=== PATIENT | female | born 1975 | race Caucasian/White ===

== ENCOUNTER 2017-11-13 20:39 | Emergency (ER) | payer MEDICAID, OTHER ==
[2017-11-13 20:58] VITALS: O2SAT 98
[2017-11-13] MEDS ORDERED: VALIUM 10 MG/2 ML SYRINGE IM ONE (21:07)
[2017-11-13] MEDS ORDERED: TORAdol 30 mg Injection IM ONE (21:07)
--- NOTE | 2017-11-13 21:12 | ERPHSYRPT ---
- History of Present Illness Time Seen by Provider: 11/13/17 21:00 Source: patient Exam Limitations: no limitations Patient Subjective Stated Complaint: pt states she fell on her lt hip approx 2 mos ago and then a few weeks later fell on her lt knee. states she has been having pain in her hip radiating down her lt leg. Triage Nursing Assessment: pt alert and oriented, answers questions approp. pt ambulatory with slightly limping gait ntoed. respirations nonlabored with lungs cta. pedal pulse, cap refill, sensation to lt leg wnl. Physician History: Pt is c/o low back pain, radiating to her left buttock and thigh for 2 months, since she fell. She denies fever, abdominal pain, vomiting, no loss of bladder or bowel control, or otehr complaints, she has been ambulating with some pain. Timing/Duration: other (2 months) Method of Injury: fall Quality: radiating, sharp Back Pain Location: lumbar spine Back Pain Radiation: buttocks, upper legs Severity of Pain-Max: severe Severity of Pain-Current: severe Modifying Factors: Improves With: immobilization, movement Associated Symptoms: denies symptoms Previous symptoms: no prior history Allergies/Adverse Reactions: Penicillins Allergy (Verified 11/13/17 21:09) Rash Hx Tetanus, Diphtheria Vaccination/Date Given: No Hx Influenza Vaccination/Date Given: No Hx Pneumococcal Vaccination/Date Given: No Immunizations Up to Date: No - Review of Systems Constitutional: No Symptoms Musculoskeletal: Back Pain All Other Systems: Reviewed and Negative - Past Medical History Pertinent Past Medical History: No - Past Surgical History Past Surgical History: Yes Other Surgical History: tubes in ears as a child - Social History Smoking Status: Current every day smoker How long have you smoked: 25 Exposure to second hand smoke: Yes Drug Use: none Patient Lives Alone: No - Female History Hx Last Menstrual Period: 2 weeks ago Hx Now: No - Nursing Vital Signs Nursing Vital Signs: Initial Vital Signs Temperature 97.5 F 11/13/17 20:43 Pulse Rate 83 11/13/17 20:43 Respiratory Rate 18 11/13/17 20:43 Blood Pressure 141/87 11/13/17 20:43 O2 Sat by Pulse Oximetry 98 11/13/17 20:43 Pain Scale Pain Intensity 5 - Physical Exam General Appearance: no apparent distress Eye Exam: eyes nml inspection Ears, Nose, Throat Exam: normal ENT inspection Neck Exam: normal inspection, non-tender Respiratory Exam: normal breath sounds Cardiovascular Exam: regular rate/rhythm, normal heart sounds, normal peripheral pulses Gastrointestinal Exam: soft, normal bowel sounds, No tenderness, No distention Back Exam: normal inspection, decreased range of motion, other (left paralumbar , muscular tenderness), No CVA tenderness, No vertebral tenderness, No muscle spasm, No point tenderness Extremity Exam: normal inspection, No calf tenderness Neurologic Exam: alert, oriented x 3, cooperative, normal mood/affect, No motor deficits Skin Exam: normal color, warm, dry Lymphatic Exam: No adenopathy SpO2 Interpretation: normal SpO2: 98 Oxygen Delivery: Room Air - Radiology Exams L-Spine X-ray Interpretation: Interpreted by me, Negative, Other (DJD, 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, and T12-L1 no acute changes) Ordered Tests: Active Orders 24 hr Category Date Time Status LUMBAR LIMITED (2 OR 3 VIEWS) Stat Exams 11/13/17 21:27 Taken UA W/RFX UR CULTURE Stat Lab 11/13/17 21:06 Completed Medication Summary Discontinued Medications Generic Name Dose Route Start Last Admin Trade Name Freq PRN Reason Stop Dose Admin Diazepam 5 mg 11/13/17 21:07 11/13/17 21:55 Valium 10 Mg/2 Ml Syringe IM 11/13/17 21:08 Not Given STAT ONE Ketorolac Tromethamine 60 mg 11/13/17 21:07 11/13/17 21:35 Toradol 30 Mg Injection IM 11/13/17 21:08 60 mg STAT ONE Administration Ketorolac Tromethamine Confirm 11/13/17 21:30 Toradol 30 Mg Injection Administered 11/13/17 21:31 Dose 60 mg .ROUTE .STK-MED ONE Orphenadrine Citrate 60 mg 11/13/17 21:32 11/13/17 21:35 Norflex 60 Mg/2 Ml IM 11/13/17 21:33 60 mg STAT ONE Administration Orphenadrine Citrate Confirm 11/13/17 21:34 Norflex 60 Mg/2 Ml Administered 11/13/17 21:35 Dose 60 mg .ROUTE .STK-MED ONE Lab/Rad Data: Laboratory Results 11/13/17 Range/Units 21:06 Ur Collection Type VOID Urine Color YELLOW (YELLOW) Urine Appearance CLEAR (CLEAR) Urine pH 6.0 (5-6) Ur Specific [place] 1.020 (1.005-1.025) Urine Protein NEGATIVE (Negative) Urine Ketones NEGATIVE (NEGATIVE) Urine Blood NEGATIVE (0-5) Ko/ul Urine Nitrite NEGATIVE (NEGATIVE) Urine Bilirubin NEGATIVE (NEGATIVE) Urine Urobilinogen NORMAL (0-1) mg/dL Ur Leukocyte Esterase NEGATIVE (NEGATIVE) Urine Culture Reflexed NO (NO) Urine Glucose NEGATIVE (NEGATIVE) mg/dL Specimen Received 11/13/17 2920 - Progress Progress: improved Progress Note: 11/13/17 23:12 Improved after Norflex and Toradol im, feels better, X ray, urine results discussed, she feels better to go home and follow up with her doctor, and return if any worsening. - Departure Time of Disposition: 23:13 Departure Disposition: Home Clinical Impression: Sciatica Qualifiers: Laterality: left Qualified Code(s): M54.32 - Sciatica, left side Condition: Stable Critical Care Time: No Referrals: MELONIE CERVANTES NP [Primary Care Provider] - Additional Instructions: Rest x 3-4 days, apply moist heat to painful area, return if severe pain, sudden leg weakness, numbness, loss of bladder or bowel control! Prescriptions: Cyclobenzaprine HCl [Flexeril] 10 mg PO TID 5 Days #15 tablet
[2017-11-13] MEDS ORDERED: TORAdol 30 mg Injection ONE (21:30)
[2017-11-13] MEDS ORDERED: Norflex 60 MG/2 ML IM ONE (21:32)
[2017-11-13] MEDS ORDERED: Norflex 60 MG/2 ML ONE (21:34)
[2017-11-13 22:51] LABS: Appearance CLEAR (CLEAR); Leukocyte Esterase NEGATIVE (NEGATIVE); Nitrite NEGATIVE (NEGATIVE); Protein,Urine Dip NEGATIVE (Negative)
[2017-11-13 22:52] LABS: Bilirubin NEGATIVE (NEGATIVE); Blood NEGATIVE Ery/ul (0-5); Glucose NEGATIVE (NEGATIVE); Ketones NEGATIVE (NEGATIVE); Urobilinogen NORMAL mg/dL (0-1)
[2017-11-13 23:25] VITALS: BP 137/84; PULSE 68
--- NOTE | 2017-11-14 08:42 | XRAY ---
Indication: Low back and left lower extremity pain. Patient fell 2 months ago. Comparison: None 3 views of the lumbar spine demonstrates 5 lumbar vertebral segments in normal alignment with minimal lower thoracic endplate spurring, mild L5-S1 degenerative disc space narrowing, mild bilateral L5-S1 degenerative facet arthropathy, and a few calcified hepatic/splenic granulomas. No other bony, articular, or soft tissue abnormalities.
== END 2017-11-13 23:25 | disposition home or self-care (01) ==
LOC: ED 20:39
DX: M54.32 Sciatica, left side (principal)
CPT/HCPCS: 72100; 81002; 96372; 99283; J1885; J2360